=== PATIENT | female | born 1955 | race Caucasian/White ===

== ENCOUNTER 2024-04-20 08:30 | Day surgery (SDC) | payer MEDICARE, SELFPAY ==
[2024-04-17 14:37] VITALS: BMI 20.9
[2024-04-20] VITALS (9 sets, daily range): BP systolic 128–169; BP diastolic 65–89; PULSE 54–100; RESP 10–18; TEMP 36.4–36.7; O2SAT 95–100; BMI 21.3
[2024-04-20] MEDS: SODIUM CHLORIDE 0.9% 500 ML 500 ML 20 ML IV (10:48)
[2024-04-20] MEDS: MIDAZOLAM INJ 1 MG/ML VIAL 2 ML (ASD USE ONLY) 2 MG IV (10:48)
[2024-04-20] MEDS: fentaNYL CIT INJ 50 mCg/ML AMP 2ML (ASD USE ONLY) IV (10:49)
[2024-04-20] MEDS: ONDANSETRON INJ 2 MG/ML INJ 2 ML 4 MG IV (10:49)
[2024-04-20] MEDS: DiphenhydrAMINE INJ 50 MG/ML VIAL 25 MG IV (10:50)
--- NOTE | 2024-04-20 11:20 | SUR.PHASEII ---
1103: Pt received for recovery. Report from [facility]. Pt sleepy. Easily aroused. Resp even, unlabored. VS stable. No c/o pain, discomfort.
--- NOTE | 2024-04-20 12:18 | SUR.PHASEII ---
1130: Pt more awake, alert. VS stable. Denies pain. Sitting up tolerating po fluids with no difficulty swallowing and no n/v. 1148: Pt fully awake, oriented x3. Pt assisted to restroom. Ambulation steady. Pt and stated understanding of discharge instructions. Pt discharged from [facility] in stable condition.
== END 2024-04-20 11:48 | disposition home or self-care (01) ==
PROVIDERS: PCP Specialist; Referring Provider Specialist; Visit Provider Specialist
PROC: (CPT 43239; principal; 2024-04-20 10:30)
DX: K22.2 Esophageal obstruction (principal); K20.90 Esophagitis, unspecified without bleeding; K29.70 Gastritis, unspecified, without bleeding; K29.50 Unspecified chronic gastritis without bleeding
CPT/HCPCS: 43249; 43248; C1726; C1769; J1200; J2250; J2405; J3010; J7040

== ENCOUNTER → 2024-07-27 | Outpatient (BNVA) | payer MEDICARE, SELFPAY | END | disposition home or self-care (01) | PROVIDERS: PCP Specialist; Referring Provider Specialist; Visit Provider Urology | DX: Z09 Encounter for follow-up examination after completed treatment for conditions other than malignant neoplasm (principal); Z87.442 Personal history of urinary calculi; M06.9 Rheumatoid arthritis, unspecified; G70.00 Myasthenia gravis without (acute) exacerbation; K57.90 Diverticulosis of intestine, part unspecified, without perforation or abscess without bleeding; E78.00 Pure hypercholesterolemia, unspecified; K21.9 Gastro-esophageal reflux disease without esophagitis | CPT/HCPCS: 99212; G0463 ==

== ENCOUNTER 2024-08-10 08:00 | Day surgery (SDC) | payer MEDICARE, SELFPAY ==
[2024-08-07 14:48] VITALS: BMI 19.8
[2024-08-10] VITALS (11 sets, daily range): BP systolic 114–161; BP diastolic 56–90; PULSE 51–64; RESP 10–21; TEMP 36.4–36.7; O2SAT 92–100; BMI 20.2
[2024-08-10] MEDS: SODIUM CHLORIDE 0.9% 500 ML 500 ML 20 ML IV (09:37)
[2024-08-10] MEDS: fentaNYL CIT INJ 50 mCg/ML AMP 2ML (ASD USE ONLY) IV (09:37)
[2024-08-10] MEDS: MIDAZOLAM INJ 1 MG/ML VIAL 2 ML (ASD USE ONLY) 2 MG IV (09:37)
[2024-08-10] MEDS: DiphenhydrAMINE INJ 50 MG/ML VIAL 25 MG IV (09:38)
== END 2024-08-10 10:30 | disposition home or self-care (01) ==
PROVIDERS: PCP Specialist; Referring Provider Specialist; Visit Provider Specialist
PROC: (CPT 43239; principal; 2024-08-10 09:00)
DX: K22.2 Esophageal obstruction (principal); K29.70 Gastritis, unspecified, without bleeding
CPT/HCPCS: 43239; 43249; C1726; C1769; J1200; J2250; J3010; J7040

== ENCOUNTER 2024-11-13 08:35 | Day surgery (SDC) | payer MEDICARE, SELFPAY ==
[2024-11-12 13:20] VITALS: BMI 21.3
[2024-11-13] VITALS (10 sets, daily range): BP systolic 108–166; BP diastolic 60–81; PULSE 48–69; RESP 11–19; TEMP 36.5–36.9; O2SAT 94–99; BMI 21.3
[2024-11-13] MEDS: SODIUM CHLORIDE 0.9% 500 ML 500 ML 20 ML IV (10:35)
[2024-11-13] MEDS: BENZOCAINE 20% (Hurricaine) SPRAY 1 DOSE TOP (10:38)
[2024-11-13] MEDS: MIDAZOLAM INJ 1 MG/ML VIAL 2 ML (ASD USE ONLY) 2 MG IVP (10:41)
[2024-11-13] MEDS: fentaNYL CIT INJ 50 mCg/ML AMP 2ML (ASD USE ONLY) IVP (10:41)
--- NOTE | 2024-11-13 12:15 | SUR.PHASEII ---
1200 Pt awake and alert. Denies pain, N/V, or difficulty swallowing. Amb with assist to bathroom, assisting with pt getting dressed. DC instructions given. Both state understanding. Pt meets dc criteria-to home.
== END 2024-11-13 12:00 | disposition home or self-care (01) ==
PROVIDERS: Referring Provider Specialist; Visit Provider Specialist
PROC: (CPT 43239; principal; 2024-11-13 09:00)
DX: K22.2 Esophageal obstruction (principal); K29.70 Gastritis, unspecified, without bleeding
CPT/HCPCS: 43248; 43239; A4649; C1726; C1769; J1200; J2250; J3010; J7999; A9270